=== PATIENT | female | born 1970 | race Caucasian/White ===

== ENCOUNTER → 2016-07-04 | Outpatient (CLI) | payer OTHER ==
--- NOTE | 2016-07-04 08:31 | MA ---
Screening Digital Mammogram With Tomosynthesis Clinical Indications: Routine screening. Grandmother with breast cancer. Technique: Standard digital cephalocaudal and tomosynthesis mediolateral oblique projections were ob tained. The digital images were processed by the [email or web address] computer aided detection system. Comparison: June 2015, June 2014, April 2013 and April 2012.. Breast density: D; The breast tissue is extremely dense. This may lower the sensitivity of mammograph y. The patient has diffuse severe prominent ductal pattern. Findings: CAD was reviewed. No suspicious findings are identified. Impression: Negative mammogram. BI-RADS 1. Recommendation: Routine screening is recommended in one year, as long as physical examination is chad ign in this patient with extremely dense breast parenchyma. Considering the extremely dense breast pa renchyma, the patient should consider using screening whole breast ultrasound as a complement to scre ening mammography. [facility] will send a result letter to the patient. Negative mammography should not preclude additional workup of a clinically suspicious finding. The patient's information is entered into a reminder system with a target due date for her next mammo gram.
== END ==
LOC: FIMAGING 07:44
DX: Z12.31 Encounter for screening mammogram for malignant neoplasm of breast (principal); Z80.3 Family history of malignant neoplasm of breast
CPT/HCPCS: G0202